=== PATIENT | female | born 1960 | race Asian ===

== ENCOUNTER 2025-02-22 10:59 | Emergency (ER) | payer OTHER ==
[~2025-02-22] VITALS: Ht 165.1 cm; Wt 56.7 kg
[2025-02-22] MEDS ORDERED: VALA100026 PO (11:33)
[2025-02-22 11:41] VITALS: BP 145/85; TEMP 98.1; O2SAT 99
== END 2025-02-22 11:39 | disposition home or self-care (01) ==
LOC: ER 10:59
DX: B02.9 Zoster without complications (principal); Z88.0 Allergy status to penicillin